=== PATIENT | female | born 1990 | race Two or more races ===

== ENCOUNTER 2025-07-23 18:55 | Emergency (ER) | payer MEDICAID, SELFPAY ==
[2025-07-23 19:34] VITALS: BP 120/78; PULSE 89; RESP 20; TEMP 36.8; O2SAT 100
--- NOTE | 2025-07-23 19:42 | XR_ITS ---
EXAMINATION: Left ankle 2 views TECHNIQUE: AP lateral left ankle 2 views Date and time: July 23, 2025, 2038 hours INDICATIONS: Patient fell 5 days ago with injury to the ankle, ankle pain. FINDINGS: Acute fractures distal fibular shaft No significant displacement No ankle dislocation IMPRESSION: Acute fractures distal fibular shaft
--- NOTE | 2025-07-23 19:42 | XR_ITS ---
Examination: Foot, left, 3 views Technique: AP, oblique, lateral views foot, 3 views Date and time of exam: July 23, 20252036 hours INDICATIONS: Patient fell 5 days ago with injury to the foot, foot pain. FINDINGS: No acute fracture involving the foot Please see the ankle report No dislocation IMPRESSION: No acute fracture involving the foot
--- NOTE | 2025-07-23 21:50 | EDNOTE_ITS ---
Lower Extremity Injury RME/HPI General Chief Complaint: Ankle/Foot Injury Stated Complaint: L) FOOT INJURY Time Seen by Provider: 07/23/25 18:58 Arrival date/time: 07/23/25 18:55 This is a case of 34-year-old female with no medical history came in in the emergency room due to left ankle and left foot pain history of present illness started 5 days prior to arrival in the emergency room when patient accidentally twisted his left ankle and foot and fell and landed on the left ankle patient went to the clinic but no x-ray was done due to worsening of the symptoms now with ecchymosis on the left foot thus patient decided to sought consult here in the emergency room denies any numbness weakness or tingling sensation no other injury noted Limitations: no limitations Related Data Home Medications ?Medication ?Instructions ?Recorded ?Confirmed vits [id number] fum See Rx Instructions . Route .COMPLEX 05/13/24 05/13/24 27 mg iron-folic acid 800 mcg tablet ( Vitamin) Previous Rx's ?Medication ?Instructions ?Recorded docusate sodium 100 mg capsule 100 mg PO BID #60 caps 05/13/24 (Colace) ibuprofen 600 mg tablet 600 mg PO Q6H PRN pain #90 t abs 05/13/24 lanolin 50 % topical ointment 1 applic topical TID PRN skin 05/13/24 irritation #15 tubes ibuprofen 800 mg tablet 800 mg PO Q8H PRN pain #20 t abs 07/23/25 Allergies Allergy/AdvReac Type Severity Reaction Status Date / Time No Known Allergies Allergy Verified 07/23/25 18:59 Review of Systems Review of Systems Systems Reviewed: All systems reviewed, normal except as documented Past Medical History Past Medical History NEUROLOGIC: Negative Neurological Disorders CARDIAC: Negative Cardiac Disorders or Congestive Heart Failure RESPIRATORY: Negative Chronic Obstructive Pulmonary Disease (COPD) GASTROINTESTINAL: Negative Gastrointestinal Disorders GENITOURINARY: Negative Genitourinary Disorders or Renal Disease REPRODUCTIVE: Negative Pelvic Inflammatory Disease MUSCULOSKELETAL: Negative Musculoskeletal Disorders ENDOCRINE: Positive Endocrine Disorders and Diabetes Mellitus Type 2 (Maternal Grandma); Negative Diabetes Mellitus Type 1 HEMATOLOGIC: Negative Blood Disorders OTHER HISTORY: Negative Autoimmune Disease, Blood Transfusions, Blood Transfusion Reaction, Anesthesia Reactions, MRSA, Clostridium Difficile or Cancer Surgical History SURGICAL: Negative Section Social History SMOKING STATUS: Never smoker SECOND HAND EXPOSURE: No ED Exam General Limitations: Present no limitations General appearance: Present alert, in no apparent distress and other (Patient is awake alert oriented not in distress nontoxic looking well-hydrated well-nour ished) Head Head exam: Present atraumatic Eye Eye exam: Present normal appearance, PERRL and EOMI ENT ENT exam: Present normal exam, normal oropharynx and mucous membranes moist Neck Neck exam: Present normal inspection, full ROM and trachea midline Chest Chest inspection: Present normal inspection and symmetric chest wall rise Respiratory Respiratory exam: Present normal lung sounds bilaterally Cardiovascular Cardiovascular exam: Present regular rate, normal rhythm and normal heart sounds Abdominal Exam Abdominal exam: Present soft and normal bowel sounds Extremities Exam Extremities exam: Present normal inspection and full ROM Expanded Lower Extremity Exam Ankle exam: Present tenderness, swelling, ecchymosis and other (moderate tenderness on the lateral aspect of the left ankle and left foot with ecchymosis on the left foot mild swelling no crepitation no deformity no redness no cellulitis ROM is limited due to pain pulses were full and equal capillary refill less than 2 seconds sensory is intact no calf tendernes); Absent abrasion, laceration, deformity, crepitus, dislocation, erythema, tenderness over talofibular lig or anterior draw sign Foot/toe exam: Present tenderness, swelling, ecchymosis and other (ROM is limited neurovascular intact); Absent abrasion, laceration, deformity, crepitus, dislocation, erythema, amputation, puncture wound, foreign body, calcaneal tenderness, tenderness at base of 5th metatarsal, nail avulsion or subungual hematoma Back Exam Back exam: Present normal inspection and full ROM Neurological Exam Neurological exam: Present alert, oriented X3 and CN II-XII intact Psychiatric Psychiatric exam: Present normal affect and normal mood Skin Skin exam: Present warm, dry, intact and normal color Course Quality Measures none Orders Category Date Time Status Crutches .NOW Care 07/23/25 21:45 Active Splint / Immobilizer STAT Care 07/23/25 21:45 Active XR ankle LT 2V Stat Exams 07/23/25 19:42 Completed XR foot comp LT min 3V Stat Exams 07/23/25 19:42 Completed Ibuprofen Tab [Motrin Tab] Med 07/23/25 21:47 Once 800 mg PO X1 ONE Vital Signs Vital signs: Vital Signs Temperature 98.2 F 07/23/25 19:34 Pulse Rate 89 07/23/25 19:34 Respiratory Rate 20 07/23/25 19:34 Blood Pressure 120/78 07/23/25 19:34 Pulse Oximetry (%) 100 07/23/25 19:34 Oxygen Delivery Method Room Air 07/23/25 19:34 Oxygen saturation is 100% in room air PROCEDURES: Orthopedic Splinting/Casting Injury #1: Side: left (Ankle) Upper Extremity Immobilizer: posterior splint Lower Extremity Injury Location: ankle Lower Extremity Immobilizer: posterior splint Other Orthopedic Equipment: crutches Additional Comments: Neurovascular intact tolerated well Extremity Injury, Lower MDM Narrative MDM Narrative:: This is a case of 34-year-old female with no medical history came in in the emergency room due to left ankle and left foot pain history of present illness started 5 days prior to arrival in the emergency room when patient accidentally twisted his left ankle and foot and fell and landed on the left ankle patient went to the clinic but no x-ray was done due to worsening of the symptoms now with ecchymosis on the left foot thus patient decided to sought consult here in the emergency room denies any numbness weakness or tingling sensation no other injury noted physical examination patient is awake alert oriented not in distress nontoxic looking well-hydrated well-nourished there is a moderate tenderness on the lateral aspect of the left ankle and left foot with ecchymosis on the left foot mild swelling no crepitation no deformity no redness no cellulitis ROM is limited due to pain pulses were full and equal capillary refill less than 2 seconds sensory is intact no calf tenderness negative Mckenzie signs negative Homans signs of Achilles tendon is intact x-ray of the foot is normal no fracture no dislocation but there is a fracture on the distal fibular shaft left ankle a splint was applied patient tolerated well no complication noted neurovascular intact pulses were full and equal capillary refill less than 2 seconds sensory is intact crutches was also given patient will follow-up with PCP to be referred to Ortho for further evaluation and tr eatment and for any worsening symptoms and emergent concern return precaution in the ER is advsied Patient was discharged with comfortable condition walking with stable gait. Patient verbalized no further complains explained diagnosis and answered patient question. Patient is comfortable with the proposed management plan including the need to follow up with his/her primary care physician and any specialist if applicable Discussed patient for any urgent condition or worsening sx, He/She needed to go to emergency room immediately or call 911. Patient acknowledge the responsibility to follow up as instructed and to monitor her/his symptoms. For any persistence of the symptoms for more than 3-5 days return precaution advised. Discussed the result of the test and was given printed discharge in struction Patient data External records reviewed:: [facility] previous records Clinical information provided by:: patient Social determinants that could affect healthcare access:: none Patient has the following chronic illnesses:: None How is presenting disease/condition affected by chronic disease/condition?: no chronic disease Evaluation data The following diagnostics were reviewed and interpreted by me:: radiology exam(s) Lab and/or radiology exams considered but not ordered:: Reviewed Interpretation Summary: Reviewed Medications / Prescriptions Medications or Prescriptions considered but not ordered:: Given Medication administrations:: Medication Administration History Ibuprofen (Ibuprofen Tab 400 Mg Tablet) 800 mg PO X1 ONE Stop: 07/23/25 21:48 Given Consultations Consultation(s) initiated? (list below): No Diagnosis Extremity Injury, Lower Differential Diagnosis: ankle sprain and strain and ankle fracture Most likely diagnosis given after review of the tests above:: Fracture of distal fibular shaft left left foot continue Admission Indicated Admission indicated?: not indicated Explain why admission is indicated or not indicated:: Not indicated Admission Request Was there a request for admission?: No Admission Attestation Admission request attestation: Not indicated Disposition Plan Disposition Plan: Discharge Discharge Attestation Discharge Attestation: The patient and all family members were given an opportunity to ask questions and understood the discharge instructions. Discharge instructions specifically effects, indications for sooner follow up or return to the emergency department, and the expected course of current diagnosis. Patient condition: Stable Discharge Plan Plan Patient Disposition: HOME (Self Care) Patient condition on transfer: Stable Prescriptions/Referrals Prescriptions/Med Rec: New ibuprofen 800 mg tablet 800 mg PO Q8H PRN (Reason: pain) Qty: 20 0RF No Action Vitamin 27 mg iron- 800 mcg tablet See Rx Instructions .ROUTE .COMPLEX Rx Instructions: as ordered ibuprofen 600 mg tablet 600 mg PO Q6H PRN (Reason: pain) Qty: 90 0RF lanolin 50 % ointment 1 applic topical TID PRN (Reason: skin irritation) Qty: 15 0RF docusate sodium [Colace] 100 mg capsule 100 mg PO BID Qty: 60 0RF Referrals: aMrio Orr [Primary Care Provider] - In 1 week Problem List Clinical Impression: Fracture of distal end of left fibula, Contusion of foot, left Patient/Caregiver Discharge Instructions Education Materials: ED Foot Contusion, ED Contusion, Lower Extremity, ED Crutch Walking, ED Splint Care, Fiberglass, ED Ankle Fracture, Distal Fibula, ED RICE Additional Instructions: Follow-up with your primary care physician in 2 days for reevaluation and to be referred to orthopedic surgeon for further evaluation and treatment of distal fibular fracture if symptoms persist need to have MRI to rule out ligament injury worsening symptoms or any emergent concerns such as numbness weakness tingling sensation return to the emergency room immediately or call 911 ice pack every 2 hours for 20 minutes for 24 hours then alternate with warm compress elevate to decrease swelling keep the splint in place until cleared by your primary care physician use of crutches for ambulation is advised Print Language: [place] Zeal[place] Stand Alone Forms: Georgina Award Info., Patient Portal Info Letter PA/SEE Supervising Physician PA/RADIOLOGY E[employer]MENT SERVICER Supervising Physician: Dr. Tirado
== END 2025-07-23 22:09 | disposition home or self-care (01) ==
PROVIDERS: Emergency Provider Emergency Medicine; PCP Student in an Organized Health Care Education/Training Program
DX: S82.832A Other fracture of upper and lower end of left fibula, initial encounter for closed fracture (principal); S90.32XA Contusion of left foot, initial encounter; X50.1XXA Overexertion from prolonged static or awkward postures, initial encounter
CPT/HCPCS: 73600; 73630; 99282; A9270